=== PATIENT | female | born 1970 | race Caucasian/White ===

== ENCOUNTER → 2016-11-18 | Outpatient (CLI) | payer BC ==
--- NOTE | 2016-11-18 10:25 | MM ---
Reason for exam: additional evaluation requested from prior study. Last mammogram was performed 1 year ago. History: Family history of breast cancer in grandmother. Taking hormonal contraceptives for 10 years. Physical Findings: Nurse Summary: nodularity in the right upper outer quadrant (nurse ts). MG 3D Diag Mammo W/Cad [facility] Bilateral CC and MLO view(s) were taken. XCCL view(s) were taken of the right breast. Prior study comparison: November 23, 2015, bilateral MG 3d diag mammo w/cad [facility]. August 29, 2014, bilateral MG diagnostic mammo w CAD [facility]. July 23, 2013, CAD bilateral diagnostic mammogram. The breast tissue is heterogeneously dense. This may lower the sensitivity of mammography. Palpable marker on the right breast. Regional calcifications anterior upper outer quadrant right breast unchanged as are regional calcifications lateral left breast. Nodular asymmetry superiorly and anteriorly right breast multiple circumscribed masses on the left breast, some leave increased in size and cab be reassessed in 6 months. These results were verbally communicated with the patient and result sheet given to the patient on 11/18/16. ASSESSMENT: Incomplete: need additional imaging evaluation, BI-RAD 0 RECOMMENDATION: Ultrasound of the right breast. (for palpable and as follow up from prior)
--- NOTE | 2016-11-18 10:32 | USB ---
Reason for exam: additional evaluation requested from abnormal screening. History: Family history of breast cancer in grandmother. Taking hormonal contraceptives for 10 years. US Breast RT Right breast ultrasound including all four quadrants, the retroareolar region and axilla demonstrates: - a 0.4 x 0.4 x 0.3cm oval, cluster too small to characterize at 12 o'clock, - a 0.8 x 1.1 x 0.6cm oval, lobulated lesion at 12 o'clock versus 7 x 5 x 8mm previously for which additional 6 month follow up recommended, - a 0.3 x 0.2 x 0.2cm oval lesion too small to characterize at 6 o'clock, - a 0.2 x 0.3 x 0.2cm oval, cystic lesion at 7 o'clock, - a 0.6 x 0.5 x 0.4cm oval, hypoechoic lesion at 8 o'clock, possibly complicated cyst for which a 6 month follow up recommended, - a 0.3 x 0.5 x 0.2cm adjacent and oval lesion too small to characterize at 8 o' clock, - a 0.9 x 0.7 x 0.4cm complex cyst versus cystic cluster at 8 o'clock, - multiple lesions largest measuring 0.8 x 1.2 x 0.7cm at 10 o'clock - and a 0.6 x 0.7 x 0.5cm oval, lobulated, cystic lesion at 10 o'clock. These results were verbally communicated with the patient and result sheet given to the patient on 11/18/16. ASSESSMENT: Probably benign, BI-RAD 3 RECOMMENDATION: 1. Ultrasound of the right breast in 6 months (targered 12:00 and 8:00 x 2) 2. Follow-up diagnostic Left breast mammogram in 6 months. JEROMY
--- NOTE | 2016-11-18 13:10 | US ---
EXAMINATION TYPE: US thyroid st tissue head/neck DATE OF EXAM: 11/18/2016 9:36 AM COMPARISON: NONE CLINICAL HISTORY: 46-year-old female E04.1 Nodule. Patient stated right upper neck palpable noted by referring physician. Patient has sinusitis GLAND SIZE: Right Lobe: 4.4 x 1.3 x 1.2 cm Left Lobe: 4.6 x 1.2 x 1.4 cm Isthmus Thickness: 0.2 cm There is overall homogeneous glandular parenchyma. NODULES RIGHT: # of nodules measured on right: 1 1. 1.4 X 0.8 x 0.9 cm heterogeneous solid nodule at the mid pole with well-defined margins; present with calcifications. This nodule is wider than tall and shows intranodular vascularity. Prior size: no prior US here LEFT: # of nodules measured on left: 1 1. 0.7 X 0.4 x 0.4 cm solid nodule at the mid pole with well-defined margins; present with microcal cifications. This nodule is as wide as tall and shows no intranodular vascularity. ISTHMUS: # of nodules measured in the isthmus: 0 Bilateral neck scanned: multiple lymph nodes are noted bilateral upper neck with largest at right upp er neck = 1.6 x 1.1 x 0.4cm and at left upper neck = 1.1 x 0.8 x 0.4cm . IMPRESSION: 1. One nodule in each thyroid lobe. The one on the right measures 1.4 cm and is solid with microcalci fications. The decision to biopsy should be made on a clinical basis. 2. The nodule on the left measures 7 mm and also has microcalcifications. This can be followed. 3. A couple borderline enlarged lymph nodes in the upper neck, larger on the right may be reactive/po st inflammatory and can be followed clinically.
== END | disposition home or self-care (01) ==
LOC: RADMAMWWP 07:39
PROVIDERS: ATTEND Family Medicine
DX: E04.2 Nontoxic multinodular goiter (principal); R59.0 Localized enlarged lymph nodes; R92.8 Other abnormal and inconclusive findings on diagnostic imaging of breast
CPT/HCPCS: 76536; 76641; G0204; G0279

== ENCOUNTER 2016-12-09 12:17 | Day surgery (SDC) | payer BC ==
[2016-12-09] MEDS: ALPRAZolam 0.5 MG TAB PO STA ×3 (12:52→13:32)
[2016-12-09 12:55] VITALS: BP 122/57; PULSE 91; RESP 20
[2016-12-09 14:09] VITALS: TEMP 97.6
--- NOTE | 2016-12-09 14:55 | US ---
EXAMINATION TYPE: US FNA thyroid DATE OF EXAM: 12/09/2016 2:28 PM COMPARISON: NONE HISTORY: Thyroid nodule, E04.1 Maximal barrier technique was utilized. Ultrasound using sterile technique. The skin overlying the no dule was localized with ultrasound and the overlying skin prepped and draped. Lidocaine used for loca l anesthesia. 5 passes with a 25-gauge needle were made into the nodule under ultrasound guidance. As pirate specimen submitted to cytology. Following the procedure hemostasis achieved. No immediate comp lication IMPRESSION: Status post ultrasound-guided fine-needle aspiration of thyroid nodule, pathology pending .
== END 2016-12-09 14:00 ==
LOC: RADPROMAIN 12:17
PROVIDERS: ATTEND Family Medicine
DX: E04.1 Nontoxic single thyroid nodule (principal)
CPT/HCPCS: 10022; 36415; 76942; 88173; 88305

== ENCOUNTER → 2017-12-22 | Outpatient (CLI) | payer BC ==
--- NOTE | 2017-12-22 11:10 | MM ---
Reason for exam: additional evaluation requested from prior study. Last mammogram was performed 1 year and 1 month ago. History: Family history of breast cancer in grandmother. Taking hormonal contraceptives for 10 years. Physical Findings: Nurse did not find any significant physical abnormalities on exam. MG Diagnostic Mammo w CAD [facility] Bilateral CC and MLO view(s) were taken. Prior study comparison: November 18, 2016, bilateral MG 3d diag mammo w/cad [facility]. November 23, 2015, bilateral MG 3d diag mammo w/cad [facility]. The breast tissue is heterogeneously dense. This may lower the sensitivity of mammography. Finding: There are typically benign round, linear, regional calcifications in both breasts. New nodularity in the left breast. These results were verbally communicated with the patient and result sheet given to the patient on 12/22/17. ASSESSMENT: Incomplete: need additional imaging evaluation, BI-RAD 0 RECOMMENDATION: Ultrasound of both breasts.
--- NOTE | 2017-12-22 11:20 | USB ---
Reason for exam: additional evaluation requested from abnormal screening. History: Family history of breast cancer in grandmother. Taking hormonal contraceptives for 10 years. US Breast BILAT Left breast ultrasound includes all four quadrants, the retroareolar region and axilla. Finding demonstrates a 1.2 x 1.3 x 0.8cm oval, cystic, mixed lesion with septations at 12 o'clock, a 0.9 x 0.8 x 0.4cm oval lesion too small to characterize at 12 o'clock, a 1.0 x 0.6 x 0.5cm oval lesion too small to characterize at 1 o'clock, a 1.5 x 0.8 x 1.7cm oval, cystic lesion at 2 o'clock, a 1.1 x 1.2 x 0.8cm oval, cystic lesion at 3 o'clock, a 0.7 x 0.5 x 0.4cm oval lesion too small to characterize at 4 o'clock, a 0.4 x 0.4 x 0.3cm lesion with calcifications at 7 o'clock, a 0.3 x 0.6 x 0.2cm lesion too small to characterize at 8 o'clock, a 1.5 x 1.1 x 0.8cm lesion at 10 o'clock and a 0.3 x 0.5 x 0.4cm hypoechoic lesion at 11 o'clock. Overall fibrocystic change. Right breast ultrasound includes all four quadrants, the retroareolar region and axilla. Finding demonstrates a 0.4 x 0.3 x 0.4cm oval lesion too small to characterize at 12 o'clock, a 0.9 x 1.1 x 0.6cm oval, hypoechoic, stable lesion at 12 o'clock, a 0.4 x 0.5 x 0.3cm oval lesion too small to characterize at 2 o'clock, a 0.4 x 0.6 x 0.5cm oval lesion too small to characterize at 4 o'clock, a 0.5 x 0.4 x 0.4cm oval, cystic lesion at 7 o'clock, a 0.5 x 0.6 x 0.2cm oval, hypoechoic, stable lesion at 8 o'clock, a 0.4 x 0.4 x 0.3cm oval lesion too small to characterize at 8 o'clock, a 0.6 x 0.8 x 0.6cm oval, cystic lesion at 10 o'clock, a 1.1 x 0.9 x 0.8cm oval, cystic lesion at 10 o'clock, a ductal calcification at 10 o'clock, a 0.6 x 0.6 x 0.4cm oval, cystic lesion at 11 o'clock, a 0.7 x 0.6 x 0.4cm oval, cystic lesion at 11 o'clock and ductal ectasia. These results were verbally communicated with the patient and result sheet given to the patient on 12/22/17. ASSESSMENT: Benign, BI-RAD 2 RECOMMENDATION: Follow-up diagnostic mammogram of both breasts in 1 year.
== END | disposition home or self-care (01) ==
LOC: RADMAMWWP 07:31
PROVIDERS: ATTEND Family Medicine
DX: N63.10 Unspecified lump in the right breast, unspecified quadrant (principal); N63.20 Unspecified lump in the left breast, unspecified quadrant; R92.8 Other abnormal and inconclusive findings on diagnostic imaging of breast
CPT/HCPCS: 77066

== ENCOUNTER → 2019-01-20 | Outpatient (CLI) | payer BC ==
--- NOTE | 2019-01-20 08:45 | US ---
EXAMINATION TYPE: US abdomen complete DATE OF EXAM: 01/20/2019 COMPARISON: NONE CLINICAL HISTORY: R11.0 Nausea. epigastric pain with pressure or certain positioning, ongoing for ove r 6 months EXAM MEASUREMENTS: Liver Length: 16.2 cm Gallbladder Wall: 0.2 cm CBD: 0.5 cm Spleen: 8.5 cm Right Kidney: 10.1 x 4.6 x 4.2 cm Left Kidney: 10.4 x 5.1 x 5.7 cm Pancreas: wnl Liver: wnl Gallbladder: wnl Evidence for sonographic Almeida's sign: no CBD: wnl Spleen: wnl Right Kidney: wnl Left Kidney: wnl Upper IVC: wnl Abd Aorta: wnl The liver is homogenous. The intrahepatic portion of the IVC and proximal abdominal aorta are within normal limits. There is no evidence of cholelithiasis. Common bile duct is unremarkable. The visu alized portions of the pancreas are homogenous. The spleen is unremarkable. Kidneys are symmetric a nd free of hydronephrosis. No renal lesions are seen. IMPRESSION: No acute process.
== END | disposition home or self-care (01) ==
LOC: RADUSWWP 08:11
PROVIDERS: ATTEND Family Medicine
DX: R11.0 Nausea (principal)
CPT/HCPCS: 76700

== ENCOUNTER → 2019-01-29 | Outpatient (CLI) | payer BC ==
--- NOTE | 2019-01-29 09:31 | MM ---
Reason for exam: clinical finding. Last mammogram was performed 1 year and 1 month ago. History: Family history of breast cancer in grandmother. Taking hormonal contraceptives for 10 years. Indicated problem(s): lump or thickening in both breasts. Physical Findings: Nurse Summary: 1cm nodule in the right breast at 1 o'clock, 2cm nodule in the right breast at 11 o'clock, 1cm nodule in the left breast at 12 o'clock and a 2cm nodule in the left breast at 1 o'clock (nurse mj). MG Diagnostic Mammo w CAD [facility] Bilateral CC and MLO view(s) were taken. Prior study comparison: December 22, 2017, bilateral MG diagnostic mammo w CAD [facility]. November 18, 2016, bilateral MG 3d diag mammo w/cad [facility]. The breast tissue is heterogeneously dense. This may lower the sensitivity of mammography. Stable benign calcifications. There is chronic nodularity bilaterally. These results were verbally communicated with the patient and result sheet given to the patient on 01/29/19. ASSESSMENT: Incomplete: need additional imaging evaluation, BI-RAD 0 RECOMMENDATION: Ultrasound of both breasts. (at palpables) Manage patient on a clinical basis.
--- NOTE | 2019-01-29 09:33 | USB ---
Reason for exam: additional evaluation requested from abnormal screening. History: Family history of breast cancer in grandmother. Taking hormonal contraceptives for 10 years. US Breast Limited BILAT Right limited breast ultrasound including focal area of concern, retroareolar and axilla demonstrates a 1.6 x 0.9 x 1.3cm cystic lesion at 10 o'clock, a 0.9 x 0.7 x 1.5cm hypoechoic lesion at 1 o'clock and duct ectasia at the posterior nipple. Left limited breast ultrasound including focal area of concern, retroareolar and axilla demonstrates a 1.2 x 0.7 x 1.1cm cystic lesion at 12 o'clock, a 1.3 x 0.7 x 1.2cm cystic lesion at 1 o'clock, a 1.8 x 1.0 x 1.8cm cystic lesion at 2 o'clock and a 0.8 x 0.4 x 1.4cm cystic cluster at 12 o'clock. These results were verbally communicated with the patient and result sheet given to the patient on 01/29/19. ASSESSMENT: Benign, BI-RAD 2 RECOMMENDATION: Follow-up diagnostic mammogram of both breasts in 1 year. Manage patient on a clinical basis.
== END ==
LOC: RADMAMWWP 06:47
PROVIDERS: ATTEND Family Medicine
DX: N63.20 Unspecified lump in the left breast, unspecified quadrant (principal); R92.8 Other abnormal and inconclusive findings on diagnostic imaging of breast
CPT/HCPCS: 77066

== ENCOUNTER 2019-02-08 08:37 | Day surgery (SDC) | payer BC ==
[2019-02-04 12:33] VITALS: BMI 22.8
[~2019-02-08 08:37] MED LIST: LACTATED RINGERS 1,000 ML IV SCH; LIDOCAINE 1% 20 ML VIAL (10MG/ML) FOR IV START INTRADERMA PRN
[2019-02-08 09:20] VITALS: RESP 18; TEMP 98.4
[2019-02-08] MEDS ORDERED: LIDOCAINE 1% INJ 10MG/ML (20 ML MDV) ONE (10:26)
[2019-02-08] MEDS ORDERED: PROPOFOL 10 MG/ML 20 ML VIAL IV ONE (10:26)
--- NOTE | 2019-02-08 10:48 | P.PCN ---
Date of Procedure: 02/08/19 Procedure(s) Performed: Procedure: Esophagogastroduodenoscopy and biopsy. Preoperative diagnosis: Nausea and upper abdominal pain. Postoperative diagnosis: 1. Small sliding hiatal hernia with no obvious esophagitis or complicated reflux disease. 2. Mild antral gastritis. 3. Multiple biopsies obtained from the duodenum, antrum and esophagus. Preparation and sedation: Was provided by anesthesia. Brief clinical history: The patient is a 48-year-old female who is scheduled for this evaluation because of abdominal pain no nausea and altered bowel habits. I have evaluated this patient back in 2002 because of persistent nausea, weight loss and intermittent diarrhea. Back then, she had normal colon and terminal ileum. Biopsies from the small intestine were normal and she had evidence of chronic reflux esophagitis and mild reactive gastropathy. This evaluation is to assess for esophagitis, complicated reflux disease or other pathology. Procedure: With the patient on her left lateral decubitus position and after informed consent and adequate sedation, I passed the Olympus-GIF H190 video upp er endoscope through the cricopharyngeus down the esophagus. GE junction was at 36 cm from the incisors and there was a small sliding hiatal hernia but no obvious esophagitis or complicated reflux disease. The endoscope was then passed into the stomach which was insufflated with air and inspected in detail including the retroflex view in the cardia. There was some mottling and erythema in the antrum but no ulcers or erosions. Pyloric channel, duodenal bulb, post bulbar area and descending duodenum appeared within normal limits. I obtained biopsies from the duodenum, antrum and esophagus then the endoscope was withdrawn. The patient tolerated the procedure well. Plan: The patient was reassured. Will await biopsy results and make further plans based on her course and biopsy results. She will follow-up with you as planned and I will be happy to see in the office if her symptoms persist.
[2019-02-08 13:51] VITALS: BP 103/76; PULSE 98
== END 2019-02-08 11:20 | disposition home or self-care (01) ==
LOC: ORWHC2ENDO 08:37
DX: K29.70 Gastritis, unspecified, without bleeding (principal); K21.0 Gastro-esophageal reflux disease with esophagitis; K44.9 Diaphragmatic hernia without obstruction or gangrene; Z88.1 Allergy status to other antibiotic agents; Z79.3 Long term (current) use of hormonal contraceptives
CPT/HCPCS: 81025; 88305; 43239; J2001; J2704

== ENCOUNTER → 2021-02-16 | Outpatient (CLI) | payer BC ==
--- NOTE | 2021-02-16 08:19 | MR ---
EXAMINATION TYPE: MR brain wo/w con DATE OF EXAM: 02/16/2021 COMPARISON: NONE HISTORY: Papillitis R eye TECHNIQUE: Multiplanar, multisequence images of the brain and brainstem is performed without and with IV contras t, utilizing 6 mL intravenous Gadavist . FINDINGS: Diffusion weighted images demonstrate no evidence of a recent infarct or other diffusion ab normality. There is no extra-axial fluid collection or significant white matter signal abnormality. The ventricular system and cisternal spaces are normal in size and appearance. The brain volume is age appropriate. Midline structures demonstrate normal morphology. The craniocervical junction appears within normal limits. Post contrast images demonstrate no abnormal enhancement. The dural venous sinuses appear pa tent. The paranasal sinuses show mild to moderate mucosal thickening of the ethmoid and sphenoid sinu ses. Mild mucosal thickening left maxillary sinus. Slight artifact distortion or level of globes. Eri bes symmetric and grossly intact. Intraorbital fat is preserved bilaterally. Suprasellar cistern is m aintained. IMPRESSION: Chronic paranasal sinus disease otherwise unremarkable study. No hydronephrosis or suspic ious enhancement.
== END | disposition home or self-care (01) ==
LOC: RADMRIMAIN 07:03
PROVIDERS: ATTEND Ophthalmology
DX: J32.9 Chronic sinusitis, unspecified (principal)
CPT/HCPCS: 70553; A9585

== ENCOUNTER → 2021-07-04 | Outpatient (CLI) | payer BC ==
--- NOTE | 2021-07-04 13:54 | MM ---
Reason for exam: screening (asymptomatic). Last mammogram was performed 2 years and 5 months ago. History: Family history of breast cancer in grandmother. Taking hormonal contraceptives for 10 years. Physical Findings: A clinical breast exam by your physician is recommended on an annual basis and results should be correlated with mammographic findings. MG 3D Screening Mammo W/Cad Bilateral CC and MLO view(s) were taken. Prior study comparison: January 29, 2019, bilateral MG diagnostic mammo w CAD [facility]. December 22, 2017, bilateral MG diagnostic mammo w CAD [facility]. The breast tissue is extremely dense which could obscure a lesion on mammography. Finding #1: There is a 15 mm obscured oval mass located 7 cm from the nipple in the upper outer quadrant, posterior, middle position of the right breast and adjacent nodularity. Finding #2: There are typically benign round, diffuse/scattered, regional, grouped calcifications in both breasts. #3 Nodularity in the left breast, obscured, multiple up to 12mm varying quadrants. New finding since January 29, 2019 and December 22, 2017. ASSESSMENT: Incomplete: need additional imaging evaluation, BI-RAD 0 RECOMMENDATION: Ultrasound of both breasts. [facility] will attempt to contact patient to return for ultrasound. JEROMY
== END | disposition home or self-care (01) ==
LOC: RADMAMWWP 08:12
PROVIDERS: ATTEND Family Medicine
DX: Z12.31 Encounter for screening mammogram for malignant neoplasm of breast (principal)
CPT/HCPCS: 77063; 77067

== ENCOUNTER → 2021-07-18 | Outpatient (CLI) | payer BC ==
--- NOTE | 2021-07-18 12:06 | USB ---
Reason for exam: additional evaluation requested from abnormal screening. History: Family history of breast cancer in grandmother. Taking hormonal contraceptives for 10 years. Physical Findings: Nurse Summary: soft, nodular (nurse bebeto). US Breast Workup Limited HINA Right limited breast ultrasound including focal area of concern, retroareolar and axilla demonstrates a 1.4 x 0.9 x 1.3cm cystic lesion at 10 o'clock. Left complete breast ultrasound includes all four quadrants, the retroareolar region and axilla. Finding demonstrates a 1.2 x 0.8 x 1.0cm cystic lesion at 2 o'clock, a 0.8 x 0.9 x 0.9cm cystic lesion at 5 o'clock and a 1.1 x 0.7 x 0.9cm cystic cluster at 11 o'clock. Multiple cystic areas bilaterally. These results were verbally communicated with the patient and result sheet given to the patient on 07/18/21. ASSESSMENT: Benign, BI-RAD 2 RECOMMENDATION: Return to routine screening mammogram schedule for both breasts.
== END | disposition home or self-care (01) ==
LOC: RADUSWWP 10:26
PROVIDERS: ATTEND Family Medicine
DX: R92.8 Other abnormal and inconclusive findings on diagnostic imaging of breast (principal); Z80.3 Family history of malignant neoplasm of breast

== ENCOUNTER → 2022-08-01 | Outpatient (CLI) | payer BC ==
--- NOTE | 2022-08-02 15:39 | MM ---
Reason for Exam: Screening (asymptomatic). Last mammogram was performed 1 year(s) and 1 month(s) ago. Patient History: Menarche at age 14. First Full-Term at age 22. Patient used Hormonal Contraceptives for 10 years. Maternal grandmother had breast cancer. Risk Values: Melissa 5 year model risk: 0.9%. NCI Lifetime model risk: 8.0%. Prior Study Comparison: 12/22/2017 Bilateral Diagnostic Mammogram, [facility]. 01/29/2019 Bilateral Diagnostic Mammogram, [facility]. 07/04/2021 Bilateral Screening Mammogram, [facility]. Tissue Density: The breast tissue is extremely dense which could obscure a lesion on mammography. Findings: Analyzed By CAD. There are scattered benign round calcifications present bilaterally. There is a stable round density in the upper-outer aspect right breast. No suspicious groups of microcalcifications, spiculated or lobular masses, architectural distortion or other secondary signs of malignancy are mammographically apparent. Overall Assessment: Benign, BI-RAD 2 Management: Screening Mammogram of both breasts in 1 year. A negative mammogram report should not preclude additional follow up of suspicious palpable abnormalities. Patient should continue monthly self breast exam. A clinical breast exam by your physician is recommended on an annual basis and results should be correlated with mammographic findings. Electronically signed and approved by: Luis Bird D.O. Radiologis
== END | disposition home or self-care (01) ==
LOC: RADMAMWWP 07:13
PROVIDERS: ATTEND Family Medicine
DX: Z12.31 Encounter for screening mammogram for malignant neoplasm of breast (principal)
CPT/HCPCS: 77063; 77067

== ENCOUNTER → 2024-05-06 | Outpatient (CLI) | payer BC ==
--- NOTE | 2024-05-06 08:47 | USB ---
Reason for Exam: Clinical finding. Patient History: Menarche at age 14. First Full-Term at age 22. Premenopausal. Patient has history of breast feeding. Patient used Hormonal Contraceptives for 10 years. Maternal grandmother had breast cancer. Risk Values: Melissa 5 year model risk: 0.9%. NCI Lifetime model risk: 7.8%. Technique: Method: Targeted. Prior Study Comparison: 01/29/2019 Bilateral Diagnostic Mammogram, [facility]. 07/04/2021 Bilateral Screening Mammogram, [facility]. 08/01/2022 Bilateral MG 3D screening mammo w/cad, [facility]. Findings: The upper outer quadrant of the right breast, the area of palpable concern of the left breast, the axilla of both breasts and the retroareolar of both breasts were scanned. There is a simple appearing cyst measuring 1.4 x 0.7 x 1.2 cm 10:00 position 7 cm from the nipple. This is slightly smaller than the comparison study.. Additional smaller cysts are present on the right breast. Some prominent ducts are at the nipple. Within the left breast there is a 1.5 x 1.0 x 1.5 cm simple cyst with good through transmission and posterior wall enhancement.. This correlates the patient's palpable abnormality is located 12:00 position 3 cm nipple. There is some prominence of ducts at the nipple on the left. Overall Assessment: Benign, BI-RAD 2 Management: Screening Mammogram of both breasts in 1 year. A clinical breast exam by your physician is recommended on an annual basis and results should be correlated with mammographic findings. This exam should not preclude additional follow-up of suspicious palpable abnormalities. Results were given to the patient verbally at the time of exam. Electronically signed and approved by: Luis Bird D.O. Radiologis
--- NOTE | 2024-05-06 08:48 | MM ---
Reason for Exam: Clinical finding. Last mammogram was performed 1 year(s) and 9 month(s) ago. Indicated Problems: Palpable abnormality of the left side for 2 Week(s). Patient History: Menarche at age 14. First Full-Term at age 22. Premenopausal. Patient has history of breast feeding. Patient used Hormonal Contraceptives for 10 years. Maternal grandmother had breast cancer. Risk Values: Melissa 5 year model risk: 0.9%. NCI Lifetime model risk: 7.8%. Prior Study Comparison: 11/23/2015 Bilateral Diagnostic Mammogram, [facility]. 11/18/2016 Bilateral Diagnostic Mammogram, [facility]. 12/22/2017 Bilateral Diagnostic Mammogram, [facility]. 01/29/2019 Bilateral Diagnostic Mammogram, [facility]. 07/04/2021 Bilateral Screening Mammogram, [facility]. 08/01/2022 Bilateral MG 3D screening mammo w/cad, [facility]. Tissue Density: The breasts are extremely dense, which lowers the sensitivity of mammography. Findings: Analyzed By CAD. The pattern is symmetrical. No discrete suspicious abnormality evident. Scattered benign punctate calcifications present bilaterally appears stable from comparison. No suspicious groups of microcalcifications, spiculated or lobular masses, architectural distortion or other secondary signs of malignancy are mammographically apparent. Overall Assessment: Incomplete: need additional imaging evaluation, BI-RAD 0 Management: Diagnostic Breast Ultrasound of both breasts. A negative mammogram report should not preclude additional follow up of suspicious palpable abnormalities. Patient should continue monthly self breast exam. A clinical breast exam by your physician is recommended on an annual basis and results should be correlated with mammographic findings. Note on Melissa scores and lifetime risk: 1. A Melissa score greater than 3% is considered moderate risk. If this is the case, consider specialist referral to assess eligibility for a risk reducing agent. 2. If overall lifetime risk for the development of breast cancer is 20% or higher, the patient may qualify for future screening with alternating mammogram and breast MRI. Electronically signed and approved by: Luis Bird D.O. Radiologis
== END | disposition home or self-care (01) ==
LOC: RADMAMWWP 07:34
PROVIDERS: ATTEND Family Medicine
DX: N60.11 Diffuse cystic mastopathy of right breast (principal); N60.02 Solitary cyst of left breast; R92.343 Mammographic extreme density, bilateral breasts; R92.8 Other abnormal and inconclusive findings on diagnostic imaging of breast; Z80.3 Family history of malignant neoplasm of breast; R92.1 Mammographic calcification found on diagnostic imaging of breast
CPT/HCPCS: 77062; 77066